=== PATIENT | female | born 1975 | race Hispanic/Latino ===

== ENCOUNTER 2024-07-28 13:00 | Inpatient (IN) | payer OTHER ==
[2024-07-28] VITALS (7 sets, daily range): BP systolic 139–170; BP diastolic 98–107; PULSE 65–87; RESP 18–20; TEMP 97.9–98.1; O2SAT 98–100
[~2024-07-28] VITALS: Ht 167.6 cm; Wt 59.0 kg
[2024-07-28 14:06] LABS: BASOPHILS # (AUTO) 0.1 (0.0-0.1); BASOPHILS % 0.8 % (0.0-1.0); EOSINOPHILS # (AUTO) 0.1 (0.0-0.4); EOSINOPHILS % 1.6 % (0.0-6.0); HEMATOCRIT 33.9 % (34.2-44.1); HEMOGLOBIN 10.7 g/dL (12.0-16.0); LYMPHOCYTES # (AUTO) 1.6 (1.0-3.2); LYMPHOCYTES % 21.1 % (18.0-39.1); MEAN CORPUSCULAR HEMOGLOBIN 25.2 pg (28-32); MEAN CORPUSCULAR HGB CONC 31.6 g/dL (31-35); MEAN CORPUSCULAR VOLUME 79.8 fL (81-99); MONOCYTES # (AUTO) 0.5 (0.2-0.8); MONOCYTES % 6.2 % (4.4-11.3); NEUTROPHILS # (AUTO) 5.4 (2.1-6.9); NEUTROPHILS % 69.9 % (38.7-80.0); PLATELET COUNT 297 x10e3/uL (140-360); RED BLOOD COUNT 4.25 x10e6/uL (3.6-5.1); RED CELL DISTRIBUTION WIDTH 14.6 % (11.7-14.4); WHITE BLOOD COUNT 7.74 x10e3/uL (4.8-10.8)
[2024-07-28 14:10] LABS: BILIRUBIN,URINE SMALL (NEGATIVE); CLARITY,URINE CLEAR (CLEAR); COLOR,URINE YELLOW (YELLOW); GLUCOSE, URINE NEGATIVE (NEGATIVE); KETONES,URINE TRACE (NEGATIVE); LEUKOCYTE ESTERASE ,URINE NEGATIVE (NEGATIVE); NITRITE,URINE NEGATIVE (NEGATIVE); PH,URINE 6 (5 - 7); PROTEIN,URINE DIPSTICK 1+ (NEGATIVE); URINE UROBILINOGEN 0.2 mg/dL (0.2 - 1)
[2024-07-28 14:12] LABS: BACTERIA,URINE MANY /HPF; EPITHELIAL CELLS,URINE MODERATE /LPF; RBC,URINE 0-5 /HPF (0-5); WBC,URINE (MAN) 0-5 /HPF (0-5)
[2024-07-28 14:13] LABS: HYALINE CASTS 0-1 (0-1)
[2024-07-28 14:46] LABS: ALBUMIN 3.8 g/dL (3.5-5.0); ALBUMIN/GLOBULIN RATIO 1.4 (0.8-2.0); ANION GAP 13.2 mmol/L (8-16); BILIRUBIN,TOTAL 0.5 mg/dL (0.2-1.2); CALCIUM 10.4 mg/dL (8.4-10.2); CREATININE, SERUM 1.12 mg/dL (0.57-1.11); TOTAL PROTEIN 6.5 g/dL (6.5-8.1)
[2024-07-28] MEDS: DICYCLOMINE HCL 20 MG/2 ML VIAL IM ONE (14:47)
[2024-07-28] MEDS: SODIUM CHLORIDE 0.9% 1000ML 1,000 ML IV STA (14:47)
[2024-07-28] MEDS: ONDANSETRON HCL INJ 2MG/ML 2ML 2 MG/ML VIAL IV PRN (14:47)
[2024-07-28 15:10] LABS: POTASSIUM 3.2 mmol/L (3.5-5.1)
[2024-07-28] MEDS ORDERED: IOPAMIDOL 370 MG/ML 100 ML INFUS..BTL INJ ONE (15:12)
[2024-07-28] MEDS ORDERED: ONDANSETRON HCL INJ 2MG/ML 2ML 2 MG/ML VIAL IV PRN (16:45)
[2024-07-28] MEDS: SODIUM CHLORIDE 0.9% 1000ML 1,000 ML IV SCH (18:25)
[2024-07-28] MEDS: KCL 20MEQ/.9 SOD CHL 1,000 ML IV SCH (20:38)
[2024-07-28] MEDS: Morphine 4mg INJECTION 4 MG/ML INJ IV PRN (20:47)
[2024-07-28] MEDS: HYDRALAZINE HCL 20 MG/ML VIAL IV PRN (21:50)
[2024-07-28] MEDS ORDERED: ADDERALL 30 MG30 MG PO (22:06)
[2024-07-29] VITALS (8 sets, daily range): BP systolic 147–197; BP diastolic 86–112; PULSE 58–82; RESP 18–20; TEMP 97.6–98.2; O2SAT 96–100
[2024-07-29] MEDS: METOCLOPRAMIDE HCL 10 MG/2ML VIAL IV SCH (00:05)
[2024-07-29 01:19] LABS: % IRON SATURATION 9 % (15-50); IRON 41 ug/dL (50-170); TOTAL IRON BINDING CAPACITY 461 ug/dL (261-478); TRANSFERRIN 329 mg/dL (180-382)
[2024-07-29 02:21] LABS: FOLATE 4.5 ng/mL (7.0-15.4)
[2024-07-29 06:03] LABS: BASOPHILS % 0.6 % (0.0-1.0); EOSINOPHILS # (AUTO) 0.2 (0.0-0.4); EOSINOPHILS % 3.5 % (0.0-6.0); HEMATOCRIT 29.6 % (34.2-44.1); HEMOGLOBIN 9.2 g/dL (12.0-16.0); LYMPHOCYTES # (AUTO) 2.4 (1.0-3.2); LYMPHOCYTES % 37.6 % (18.0-39.1); MEAN CORPUSCULAR HEMOGLOBIN 24.5 pg (28-32); MEAN CORPUSCULAR HGB CONC 31.1 g/dL (31-35); MEAN CORPUSCULAR VOLUME 78.7 fL (81-99); MONOCYTES # (AUTO) 0.7 (0.2-0.8); MONOCYTES % 10.5 % (4.4-11.3); NEUTROPHILS % 47.6 % (38.7-80.0); PLATELET COUNT 277 x10e3/uL (140-360); RED BLOOD COUNT 3.76 x10e6/uL (3.6-5.1); RED CELL DISTRIBUTION WIDTH 14.6 % (11.7-14.4); WHITE BLOOD COUNT 6.27 x10e3/uL (4.8-10.8)
[2024-07-29 06:14] LABS: ANION GAP 12.5 mmol/L (8-16); CALCIUM 9.5 mg/dL (8.4-10.2); CREATININE, SERUM 0.95 mg/dL (0.57-1.11); POTASSIUM 3.5 mmol/L (3.5-5.1)
[2024-07-29] MEDS: AMLODIPINE BESYLATE 5 MG TAB PO SCH (09:32)
[2024-07-29] MEDS: LIDOCAINE 1% 10 ML MULTIDOSE VIAL IJ ONE (19:34)
[2024-07-30 00:35] VITALS: BP_SYST 141; BP_SYST 170; BP_DIAS 105; BP_DIAS 89; PULSE 63; RESP 17; TEMP 98; O2SAT 100
[2024-07-30 04:58] VITALS: BP 177/96; PULSE 62; RESP 17; TEMP 98.1; O2SAT 100
[2024-07-30 08:00] VITALS: BP_SYST 181; BP_SYST 185; BP_DIAS 109; BP_DIAS 113; PULSE 57; RESP 18; TEMP 98.2; O2SAT 100
[2024-07-30 08:40] LABS: BASOPHILS % 0.6 % (0.0-1.0); EOSINOPHILS # (AUTO) 0.2 (0.0-0.4); EOSINOPHILS % 2.4 % (0.0-6.0); HEMATOCRIT 31.8 % (34.2-44.1); LYMPHOCYTES # (AUTO) 1.8 (1.0-3.2); LYMPHOCYTES % 28.7 % (18.0-39.1); MEAN CORPUSCULAR HEMOGLOBIN 24.6 pg (28-32); MEAN CORPUSCULAR HGB CONC 31.4 g/dL (31-35); MEAN CORPUSCULAR VOLUME 78.3 fL (81-99); MONOCYTES # (AUTO) 0.4 (0.2-0.8); MONOCYTES % 6.9 % (4.4-11.3); NEUTROPHILS # (AUTO) 3.8 (2.1-6.9); NEUTROPHILS % 61.2 % (38.7-80.0); PLATELET COUNT 262 x10e3/uL (140-360); RED BLOOD COUNT 4.06 x10e6/uL (3.6-5.1); RED CELL DISTRIBUTION WIDTH 14.7 % (11.7-14.4); WHITE BLOOD COUNT 6.21 x10e3/uL (4.8-10.8)
[2024-07-30 08:55] LABS: ANION GAP 12.7 mmol/L (8-16); CALCIUM 9.9 mg/dL (8.4-10.2); CREATININE, SERUM 0.88 mg/dL (0.57-1.11); POTASSIUM 3.7 mmol/L (3.5-5.1)
[2024-07-30 09:11] LABS: MAGNESIUM 1.6 MG/DL (1.3-2.1); PHOSPHORUS 2.6 MG/DL (2.3-4.7)
[2024-07-30 12:00] VITALS: BP 174/109; PULSE 82; RESP 18; TEMP 98.1; O2SAT 100
[2024-07-30] MEDS: ENALAPRILAT IV INJ 1.25 MG/ML VIAL IV PRN (13:43)
[2024-07-30 16:00] VITALS: BP 136/86; PULSE 71; RESP 18; TEMP 98.4; O2SAT 100
== END 2024-07-30 19:00 | disposition home or self-care (01) | DRG 394 ==
LOC: ER 13:47 → ERHOLD 16:44 → OBSVTOIN 19:27 → MED/SURG2 20:41
PROVIDERS: ADMIT Internal Medicine; ATTEND Internal Medicine
DX: K95.09 Other complications of gastric band procedure (principal); E87.1 Hypo-osmolality and hyponatremia; K92.0 Hematemesis; N17.9 Acute kidney failure, unspecified; N39.0 Urinary tract infection, site not specified; E86.0 Dehydration; I10 Essential (primary) hypertension; K20.90 Esophagitis, unspecified without bleeding; K29.70 Gastritis, unspecified, without bleeding; K42.9 Umbilical hernia without obstruction or gangrene; R13.10 Dysphagia, unspecified; E78.5 Hyperlipidemia, unspecified; Z53.8 Procedure and treatment not carried out for other reasons; Y83.1 Surgical operation with implant of artificial internal device as the cause of abnormal reaction of the patient, or of later complication, without mention of misadventure at the time of the procedure; Z85.3 Personal history of malignant neoplasm of breast; Z90.10 Acquired absence of unspecified breast and nipple; Z90.710 Acquired absence of both cervix and uterus
CPT/HCPCS: 36415; 74177; 80048; 80053; 81001; 82607; 82746; 83540; 83690; 83735; 84100; 84466; 84702; 85025; 85045; 87086; 94799; 99284; J0360; J0696; J2270; J2405; J2470; J2765; J7030; Q9967